=== PATIENT | male | born 1975 | race Hispanic/Latino ===

== ENCOUNTER 2018-05-03 14:50 | Emergency (ER) | payer MEDICARE | END 2018-05-03 15:14 | disposition left against medical advice (07) | LOC: ERS 14:50 | DX: Z53.21 Procedure and treatment not carried out due to patient leaving prior to being seen by health care provider (principal) | CPT/HCPCS: 94760 ==

== ENCOUNTER 2018-06-22 21:02 | Emergency (ER) | payer MEDICARE ==
[2018-06-22 21:46] LABS: #Basophils 0.1 thou/uL (0.0-0.2); #Eosinphils 0.2 thou/uL (0.0-0.7); #Lymphocytes 2.8 thou/uL (1.20-3.40); #Monocytes 0.9 thou/uL (0.11-0.59); #Neutrophils 4.4 thou/uL (1.40-6.50); %Basophils 0.7 % (0.0-1.0); %Eosinophils 2.4 % (0.0-10.0); %Lymphocytes 33.6 % (21.0-51.0); %Monocytes 10.5 % (0.0-10.0); %Neutrophils 52.7 % (42.0-75.0); Hemoglobin 15.8 g/dL (14.0-18.0); Mean Corpuscular HGB CONC 32.9 g/dL (32.0-36.0); Mean Corpuscular Hemoglobin 30.1 pg (27.0-31.0); Mean Corpuscular Volume 91.3 fL (78.0-98.0); Mean Platelet Volume 7.6 fL (7.4-10.4); Platelet Count 222 thou/uL (130-400); RBC Distribution Width 13.5 % (11.5-14.5); Red Blood Cell (RBC) Count 5.24 mill/uL (4.70-6.10); White Blood Cell (WBC) Count 8.4 thou/uL (4.8-10.8)
[2018-06-22 21:59] LABS: Bilirubin Negative (Negative); Blood, Urine Negative (Negative); Clarity CLEAR (Clear); Glucose, Urine (Dipstick) 100 mg/dL (Negative); Leukocyte Negative (Negative); Nitrite Negative (Negative); Protein, Urine (Dipstick) Negative (Neg-Trace); Specific Gravity, Urine 1.012 (1.002-1.036); Urobilinogen 0.2 mg/dL (0.2-1.0); pH, Urine 7.5 (5.0-9.0)
[2018-06-22 22:06] LABS: ALT (SGPT) 157 U/L (8-55); AST (SGOT) 70 U/L (5-34); Albumin 4.9 g/dL (3.5-5.0); Alkaline Phosphatase 55 U/L (40-150); Anion Gap 18 mmol/L (10-20); BUN (Urea Nitrogen) 11 mg/dL (8.9-20.6); Bilirubin, Total 0.3 mg/dL (0.2-1.2); Calc. Creatinine Clearance 0 mL/min (70-130); Calcium 10.1 mg/dL (7.8-10.44); Carbon Dioxide 23 mmol/L (22-29); Chloride 101 mmol/L (98-107); Estimated GFR-MDRD Greater than 90; Globulin 3.7 g/dL (2.4-3.5); Glucose 101 mg/dL (70-105); Potassium 3.2 mmol/L (3.5-5.1); Protein, Total 8.6 g/dL (6.0-8.3); Sodium 139 mmol/L (136-145)
[2018-06-22] MEDS ORDERED: Meclizine HCl 25 MG TAB ONE (22:30)
--- NOTE | 2018-06-22 22:58 | CT ---
NONCONTRAST CT HEAD: 06/22/18 HISTORY: Dizziness, history of TIA. Patient reports severe headache and dizziness today. COMPARISON: None available. FINDINGS: There are low density structures seen in the inferior aspect of each basal ganglia and probably relat ed to dilated perivascular spaces versus less likely remote lacunar infarctions. There is no evidence of an acute infarction, hemorrhage, mass effect, or midline shift. There is what appears to be a janay a cisterna magna as opposed to arachnoid cyst in the posterior aspect of the posterior fossa although this is a differential consideration. There is no evidence of an acute infarction, hemorrhage, mass effect or midline shift. The ventricula r system is normal in size, shape, and position. The visualized paranasal sinuses and mastoid air ade ls are clear. Calvarial structures are intact. IMPRESSION: 1. No acute intracranial abnormality is demonstrated. 2. Probable dilated perivascular spaces in inferior aspect of each basal ganglia. 3. Findings which may be attributable to chepe cisterna magna versus a small arachnoid cyst measu ring 2.8 cm. A nonemergent MRI of brain may be beneficial for further characterization of this maurisioin g. POS: [facility]
[2018-06-22] MEDS ORDERED: cloNIDine 0.1 MG TAB ONE (23:03)
[2018-06-22] MEDS ORDERED: Acetaminophen 500 MG TAB ONE (23:03)
== END 2018-06-23 00:21 | disposition home or self-care (01) ==
LOC: ERS 21:02
DX: I10 Essential (primary) hypertension (principal); H61.22 Impacted cerumen, left ear; R51 Headache; F41.9 Anxiety disorder, unspecified; F32.9 Major depressive disorder, single episode, unspecified; Z87.442 Personal history of urinary calculi; Z79.899 Other long term (current) drug therapy
CPT/HCPCS: 70450; 80053; 81003; 84484; 85025; 93005; 96360

== ENCOUNTER 2018-08-05 18:02 | Emergency (ER) | payer MEDICARE | END 2018-08-05 19:48 | disposition home or self-care (01) | LOC: ERS 18:02 | DX: J10.1 Influenza due to other identified influenza virus with other respiratory manifestations (principal); F41.9 Anxiety disorder, unspecified; F32.9 Major depressive disorder, single episode, unspecified; I10 Essential (primary) hypertension; Z87.442 Personal history of urinary calculi | CPT/HCPCS: 87804; 99283 ==